=== PATIENT | female | born 1950 | race Caucasian/White ===

== ENCOUNTER 2022-10-08 09:34 | Inpatient (IN) ==
[2022-10-08] MEDS ORDERED: methylPREDNISolone SOD SUCC 125 mg 2 ML VIAL IV ONE (10:25)
[2022-10-08] MEDS ORDERED: Nicotine PATCH 21 MG/24 HR PATCH TRANSDERM ONE (10:29)
[2022-10-08] MEDS ORDERED: Levalbuterol 1.25MG/0.5ML NEB.SOL INH ONE ×2 (10:30→11:48)
[2022-10-08 10:32] LABS: ABS Lymphocytes 0.3 10^3/ul (1.0-4.8); ABS Monocytes 1.4 10^3/ul (0-0.8); ABS Neutrophils 10.7 10^3/ul (1.5-7.7); Hematocrit 60 % (35-47); Hemoglobin 19.5 g/dL (12.0-16.0); Lymphocyte % 2.4 %; Mean Corpuscular HGB Conc 32 g/dL (31-36); Mean Corpuscular Hemoglobin 33 pg (27-31); Mean Corpuscular Volume 103 fL (80-97); Mean Platelet Volume 8.9 fL (7.4-10.4); Platelet Count 112 10^3/uL (150-450); Red Blood Count 5.84 10^6 /uL (3.70-4.87); Red Cell Distribution Width 13 % (10-15); White Blood Count 12.4 10^3/uL (3.5-10.8)
[2022-10-08 10:48] LABS: Activated Partial Thrombo Time 35.8 seconds (26.0-38.0); INR 1.22 (0.89-1.11)
[2022-10-08 10:56] LABS: High Sens Troponin Baseline 63 pg/mL (<15)
[2022-10-08 11:13] LABS: ALT 17 U/L (7-52); AST 25 U/L (13-39); Albumin 3.1 g/dL (3.2-5.2); Albumin/Globulin Ratio 1.2 (1-3); Alcohol, S < 13 mg/dL (<13); Alkaline Phosphatase 70 U/L (35-149); Anion Gap 7 mmol/L (2-11); Blood Urea Nitrogen 9 mg/dL (6-24); C Reactive Protein 246.21 mg/L (<8.01); CO2 Carbon Dioxide 35 mmol/L (22-32); Calcium 8.5 mg/dL (8.6-10.3); Chloride 93 mmol/L (101-111); Globulin 2.6 g/dL (2-4); Glucose 116 mg/dL (70-100); Magnesium 1.6 mg/dL (1.9-2.7); Potassium 3.8 mmol/L (3.5-5.0); Sodium 135 mmol/L (135-145); Total Protein 5.7 g/dL (6.4-8.9); eGFR CKD-EPI 107.2 (>60)
[2022-10-08] MEDS ORDERED: Magnesium Sulfate 2 gm BAG 2 GM/50 ML BAG IVPB ONE (11:17)
[2022-10-08] MEDS ORDERED: Azithromycin 500 mg/250 ml NS 500 MG/250 ML BAG IVPB ONE (11:35)
[2022-10-08] MEDS ORDERED: cefTRIAXone 1 gm/50 mL D5W 1 GM/50 ML BAG IV ONE (11:35)
[2022-10-08 11:59] LABS: High Sensitivity Troponin 1 Hr 55 pg/mL (<15)
[2022-10-08 12:25] LABS: PO2 Arterial 93 mmHg (80-100)
[2022-10-08 12:40] LABS: PCO2 Arterial 81 mmHg (35-45)
[2022-10-08] MEDS ORDERED: Remdesivir 100 mg Vial 200 MG in NS 0.9% 250 ml 210 ML IV ONE (13:30)
[2022-10-08] MEDS: Heparin 5000 UNITS/ML 1 mL VIAL SUBCUT SCH ×2 (14:20→20:57)
[2022-10-08] MEDS ORDERED: LORazepam 2 mg VIAL 1 ml IV PUSH SCH (16:00)
[2022-10-08] MEDS ORDERED: Lorazepam PYXIS KEY PRN ×2 (16:08)
[2022-10-08] MEDS: Multivitamins/Minerals TAB PO SCH (16:29)
[2022-10-08 17:07] LABS: PO2 Arterial 104 mmHg (80-100)
[2022-10-08 17:13] LABS: PCO2 Arterial 76 mmHg (35-45)
[2022-10-08] MEDS: DOXYcycline 100 MG in NS 0.9% 250 ml 250 ML IVPB SCH (17:54)
[2022-10-08] MEDS: Senna TAB 8.6 mg TAB PO SCH (20:35)
[2022-10-09 04:15] LABS: Hematocrit 57 % (35-47); Hemoglobin 18.5 g/dL (12.0-16.0); Mean Corpuscular HGB Conc 33 g/dL (31-36); Mean Corpuscular Hemoglobin 34 pg (27-31); Mean Corpuscular Volume 104 fL (80-97); Red Blood Count 5.45 10^6 /uL (3.70-4.87); Red Cell Distribution Width 14 % (10-15); White Blood Count 18.3 10^3/uL (3.5-10.8)
[2022-10-09] MEDS: DOXYcycline 100 MG in NS 0.9% 250 ml 250 ML IVPB SCH ×2 (04:18→17:10)
[2022-10-09 04:25] LABS: ABS Eosinophils 0.1 10^3/ul (0-0.6); ABS Lymphocytes 0.4 10^3/ul (1.0-4.8); ABS Neutrophils 16.8 10^3/ul (1.5-7.7); Eosinophil % 0.3 %; Nucleated Red Blood Cells % 0.1
[2022-10-09 05:04] LABS: Blood Urea Nitrogen 14 mg/dL (6-24); CO2 Carbon Dioxide 37 mmol/L (22-32); Calcium 8.3 mg/dL (8.6-10.3); Chloride 96 mmol/L (101-111); Glucose 138 mg/dL (70-100); Sodium 136 mmol/L (135-145); eGFR CKD-EPI 111.2 (>60)
[2022-10-09 05:11] LABS: Anion Gap 3 mmol/L (2-11)
[2022-10-09 05:51] LABS: Mean Platelet Volume 9.2 fL (7.4-10.4); Platelet Count 110 10^3/uL (150-450)
[2022-10-09] MEDS: Heparin 5000 UNITS/ML 1 mL VIAL SUBCUT SCH ×3 (05:53→21:18)
[2022-10-09 06:46] LABS: Magnesium 2.2 mg/dL (1.9-2.7); Potassium Redraw 3.9 mmol/L (3.5-5.0)
[2022-10-09] MEDS: Senna TAB 8.6 mg TAB PO SCH ×2 (07:46→21:19)
[2022-10-09] MEDS: Nicotine PATCH 21 MG/24 HR PATCH TRANSDERM SCH (07:46)
[2022-10-09] MEDS: Multivitamins/Minerals TAB PO SCH (07:47)
[2022-10-09] MEDS: Remdesivir 100 mg Vial 100 MG in NS 0.9% 250 ml 230 ML IV SCH (08:23)
[2022-10-09 08:42] LABS: Urine Appearance Cloudy; Urine Bilirubin Negative (Negative); Urine Blood Negative (Negative); Urine Color Amber; Urine Glucose Negative (Negative); Urine Ketones Negative (Negative); Urine Nitrite Negative (Negative); Urine Protein 1+(30 mg/dL) (Negative); Urine Specific Gravity 1.024 (1.002-1.030); Urine Urobilinogen Negative (Negative)
[2022-10-09 08:48] LABS: Urine Bacteria 1+ (Absent); Urine Red Blood Cell Trace(0-2/hpf) (Absent); Urine Squamous Epithelial Cell Present (Absent); Urine White Blood Cell Trace(0-5/hpf) (Absent)
[2022-10-09] MEDS ORDERED: Polyethylene Glycol 3350 17 GM PACKET PO PRN (09:42)
[2022-10-09] MEDS: cefTRIAXone 1 gm/50 mL D5W 1 GM/50 ML BAG IV SCH (12:00)
[2022-10-09] MEDS: guaiFENesin/CODIENE 100mg/10mg 5 ML UDC PO PRN (23:41)
[2022-10-10] MEDS: DOXYcycline 100 MG in NS 0.9% 250 ml 250 ML IVPB SCH ×2 (04:21→16:40)
[2022-10-10] MEDS: Heparin 5000 UNITS/ML 1 mL VIAL SUBCUT SCH ×3 (04:59→22:16)
[2022-10-10 05:50] LABS: Albumin 2.5 g/dL (3.2-5.2); Albumin/Globulin Ratio 1.1 (1-3); C Reactive Protein 113.28 mg/L (<8.01); Calcium 8.6 mg/dL (8.6-10.3); Globulin 2.3 g/dL (2-4); Magnesium 2.1 mg/dL (1.9-2.7); Potassium 3.8 mmol/L (3.5-5.0); Total Bilirubin 0.6 mg/dL (0.2-1.0); Total Protein 4.8 g/dL (6.4-8.9); eGFR CKD-EPI 107.2 (>60)
[2022-10-10 06:45] LABS: Activated Partial Thrombo Time 45.7 seconds (26.0-38.0); INR 1.56 (0.89-1.11)
[2022-10-10] MEDS: Nicotine PATCH 21 MG/24 HR PATCH TRANSDERM SCH (08:08)
[2022-10-10] MEDS: Senna TAB 8.6 mg TAB PO SCH ×3 (08:08→20:20)
[2022-10-10] MEDS: Multivitamins/Minerals TAB PO SCH (08:08)
[2022-10-10] MEDS: Remdesivir 100 mg Vial 100 MG in NS 0.9% 250 ml 230 ML IV SCH (08:28)
[2022-10-10] MEDS ORDERED: Potassium Chlor 20 meq TAB.ER PO ONE (09:04)
[2022-10-10] MEDS: cefTRIAXone 1 gm/50 mL D5W 1 GM/50 ML BAG IV SCH (12:26)
[2022-10-10] MEDS: guaiFENesin/CODIENE 100mg/10mg 5 ML UDC PO PRN ×2 (14:37→22:16)
[2022-10-11] MEDS: DOXYcycline 100 MG in NS 0.9% 250 ml 250 ML IVPB SCH ×2 (05:45→18:35)
[2022-10-11] MEDS: Heparin 5000 UNITS/ML 1 mL VIAL SUBCUT SCH ×3 (05:56→21:01)
[2022-10-11] MEDS: Senna TAB 8.6 mg TAB PO SCH ×2 (08:40→20:56)
[2022-10-11] MEDS: Nicotine PATCH 21 MG/24 HR PATCH TRANSDERM SCH (08:40)
[2022-10-11] MEDS: Remdesivir 100 mg Vial 100 MG in NS 0.9% 250 ml 230 ML IV SCH (08:40)
[2022-10-11] MEDS: Multivitamins/Minerals TAB PO SCH (08:40)
[2022-10-11 09:27] LABS: Hematocrit 55 % (35-47); Hemoglobin 17.8 g/dL (12.0-16.0); Mean Corpuscular HGB Conc 32 g/dL (31-36); Mean Corpuscular Hemoglobin 34 pg (27-31); Mean Corpuscular Volume 105 fL (80-97); Mean Platelet Volume 8.8 fL (7.4-10.4); Platelet Count 172 10^3/uL (150-450); Red Blood Count 5.28 10^6 /uL (3.70-4.87); Red Cell Distribution Width 14 % (10-15); White Blood Count 17.7 10^3/uL (3.5-10.8)
[2022-10-11 10:03] LABS: Calcium 8.9 mg/dL (8.6-10.3); Magnesium 1.9 mg/dL (1.9-2.7); Potassium 4.2 mmol/L (3.5-5.0); eGFR CKD-EPI 106.5 (>60)
[2022-10-11] MEDS ORDERED: Iohexol 350 (CONTRAST) 500 ML MDV IV ONE (11:40)
[2022-10-11] MEDS: cefTRIAXone 1 gm/50 mL D5W 1 GM/50 ML BAG IV SCH (14:00)
[2022-10-11] MEDS ORDERED: Potassium Phosphate IV 10 MMOLE in NS 0.9% 250 ml 250 ML IVPB ONE (15:14)
[2022-10-11] MEDS ORDERED: LORazepam 2 mg VIAL 1 ml IV PUSH SCH (17:44)
[2022-10-12] MEDS: DOXYcycline 100 MG in NS 0.9% 250 ml 250 ML IVPB SCH ×2 (05:18→15:34)
[2022-10-12] MEDS ORDERED: Enoxaparin 40 MG/0.4 ML SYR SUBCUT SCH (06:00)
[2022-10-12 06:11] LABS: Hematocrit 56 % (35-47); Hemoglobin 17.9 g/dL (12.0-16.0); Mean Corpuscular HGB Conc 32 g/dL (31-36); Mean Corpuscular Hemoglobin 33 pg (27-31); Mean Corpuscular Volume 104 fL (80-97); Mean Platelet Volume 8.8 fL (7.4-10.4); Platelet Count 175 10^3/uL (150-450); Red Blood Count 5.39 10^6 /uL (3.70-4.87); Red Cell Distribution Width 14 % (10-15); White Blood Count 13.2 10^3/uL (3.5-10.8)
[2022-10-12] MEDS: Heparin 5000 UNITS/ML 1 mL VIAL SUBCUT SCH (06:29)
[2022-10-12 06:47] LABS: Calcium 8.7 mg/dL (8.6-10.3); Magnesium 1.9 mg/dL (1.9-2.7); Phosphorus 2.7 mg/dL (2.5-5.0); Potassium 4.4 mmol/L (3.5-5.0); eGFR CKD-EPI 103.2 (>60)
[2022-10-12] MEDS: Nicotine PATCH 21 MG/24 HR PATCH TRANSDERM SCH (08:47)
[2022-10-12] MEDS: Remdesivir 100 mg Vial 100 MG in NS 0.9% 250 ml 230 ML IV SCH (08:48)
[2022-10-12] MEDS: Senna TAB 8.6 mg TAB PO SCH ×2 (08:53→20:47)
[2022-10-12] MEDS: Multivitamins/Minerals TAB PO SCH (08:53)
[2022-10-12 12:02] LABS: PCO2 Arterial 64 mmHg (35-45); PO2 Arterial 80 mmHg (80-100)
[2022-10-12] MEDS: cefTRIAXone 1 gm/50 mL D5W 1 GM/50 ML BAG IV SCH (12:09)
[2022-10-12 12:58] LABS: ABS Lymphocytes 0.3 10^3/ul (1.0-4.8); ABS Monocytes 0.7 10^3/ul (0-0.8); ABS Neutrophils 9.3 10^3/ul (1.5-7.7); Hematocrit 58 % (35-47); Hemoglobin 18.6 g/dL (12.0-16.0); Lymphocyte % 3.3 %; Mean Corpuscular HGB Conc 32 g/dL (31-36); Mean Corpuscular Hemoglobin 34 pg (27-31); Mean Corpuscular Volume 105 fL (80-97); Mean Platelet Volume 8.9 fL (7.4-10.4); Nucleated Red Blood Cells % 0.1; Platelet Count 165 10^3/uL (150-450); Red Blood Count 5.52 10^6 /uL (3.70-4.87); Red Cell Distribution Width 14 % (10-15); White Blood Count 10.4 10^3/uL (3.5-10.8)
[2022-10-12 13:27] LABS: CO2 Carbon Dioxide 26 mmol/L (22-32); Calcium 8.8 mg/dL (8.6-10.3); Chloride 101 mmol/L (101-111); Sodium 138 mmol/L (135-145)
[2022-10-12 13:33] LABS: ALT 20 U/L (7-52); Albumin/Globulin Ratio 1.1 (1-3); Alkaline Phosphatase 68 U/L (35-149); Blood Urea Nitrogen 11 mg/dL (6-24); Globulin 2.7 g/dL (2-4); Glucose 146 mg/dL (70-100); Total Protein 5.7 g/dL (6.4-8.9)
[2022-10-12 13:34] LABS: Anion Gap 11 mmol/L (2-11)
[2022-10-12] MEDS: Enoxaparin 40 MG/0.4 ML SYR SUBCUT SCH (15:30)
[2022-10-12] MEDS ORDERED: LORazepam 2 mg VIAL 1 ml IV PUSH PRN (16:44)
[2022-10-12] MEDS ORDERED: LORazepam 2 mg VIAL 1 ml IV PUSH SCH (16:44)
[2022-10-12] MEDS ORDERED: Magnesium Sulfate 2 gm BAG 2 GM/50 ML BAG IVPB ONE (18:43)
[2022-10-12 19:36] LABS: Calcium 8.3 mg/dL (8.6-10.3); eGFR CKD-EPI 104.4 (>60)
[2022-10-12] MEDS ORDERED: Lactated Ringers 1000 ml BAG 1,000 ML IV SCH (20:00)
[2022-10-12 20:12] LABS: Magnesium 1.9 mg/dL (1.9-2.7); Potassium 4.4 mmol/L (3.5-5.0)
[2022-10-12 20:21] LABS: High Sensitivity Troponin 1 Hr 37 pg/mL (<15)
[2022-10-13] MEDS: DOXYcycline 100 MG in NS 0.9% 250 ml 250 ML IVPB SCH ×2 (05:34→18:11)
[2022-10-13 06:21] LABS: Hematocrit 53 % (35-47); Hemoglobin 16.8 g/dL (12.0-16.0); Mean Corpuscular HGB Conc 32 g/dL (31-36); Mean Corpuscular Hemoglobin 33 pg (27-31); Mean Corpuscular Volume 104 fL (80-97); Platelet Count 152 10^3/uL (150-450); Red Blood Count 5.03 10^6 /uL (3.70-4.87); Red Cell Distribution Width 14 % (10-15)
[2022-10-13 06:51] LABS: Calcium 8.3 mg/dL (8.6-10.3); Magnesium 2.3 mg/dL (1.9-2.7); Phosphorus 2.4 mg/dL (2.5-5.0); eGFR CKD-EPI 109.5 (>60)
[2022-10-13] MEDS ORDERED: Potassium Phosphate IV 10 MMOLE in NS 0.9% 250 ml 250 ML IVPB ONE (07:20)
[2022-10-13] MEDS: Multivitamins/Minerals TAB PO SCH (08:02)
[2022-10-13] MEDS: Senna TAB 8.6 mg TAB PO SCH ×2 (08:02→20:34)
[2022-10-13] MEDS: Nicotine PATCH 21 MG/24 HR PATCH TRANSDERM SCH (08:02)
[2022-10-13] MEDS: cefTRIAXone 1 gm/50 mL D5W 1 GM/50 ML BAG IV SCH (13:12)
[2022-10-13] MEDS: Enoxaparin 40 MG/0.4 ML SYR SUBCUT SCH (16:02)
[2022-10-13] MEDS: guaiFENesin/CODIENE 100mg/10mg 5 ML UDC PO PRN (20:37)
[2022-10-14] MEDS: DOXYcycline 100 MG in NS 0.9% 250 ml 250 ML IVPB SCH ×2 (05:24→17:32)
[2022-10-14 07:06] LABS: ABS Lymphocytes 0.4 10^3/ul (1.0-4.8); ABS Monocytes 0.6 10^3/ul (0-0.8); ABS Neutrophils 4.6 10^3/ul (1.5-7.7); Eosinophil % 0.1 %; Hematocrit 52 % (35-47); Hemoglobin 16.6 g/dL (12.0-16.0); Lymphocyte % 6.8 %; Mean Corpuscular HGB Conc 32 g/dL (31-36); Mean Corpuscular Hemoglobin 34 pg (27-31); Mean Corpuscular Volume 105 fL (80-97); Mean Platelet Volume 8.8 fL (7.4-10.4); Nucleated Red Blood Cells % 0.1; Platelet Count 127 10^3/uL (150-450); Red Blood Count 4.95 10^6 /uL (3.70-4.87); Red Cell Distribution Width 14 % (10-15); White Blood Count 5.6 10^3/uL (3.5-10.8)
[2022-10-14 08:24] LABS: Anion Gap 5 mmol/L (2-11); Blood Urea Nitrogen 9 mg/dL (6-24); CO2 Carbon Dioxide 37 mmol/L (22-32); Chloride 99 mmol/L (101-111); Glucose 121 mg/dL (70-100); Magnesium 1.9 mg/dL (1.9-2.7); Phosphorus 2.8 mg/dL (2.5-5.0); Potassium 4.1 mmol/L (3.5-5.0); Sodium 141 mmol/L (135-145)
[2022-10-14] MEDS: Nicotine PATCH 21 MG/24 HR PATCH TRANSDERM SCH (08:43)
[2022-10-14] MEDS: Senna TAB 8.6 mg TAB PO SCH ×2 (08:43→20:05)
[2022-10-14] MEDS: Multivitamins/Minerals TAB PO SCH (08:43)
[2022-10-14 08:50] LABS: eGFR CKD-EPI 111.2 (>60)
[2022-10-14] MEDS ORDERED: Magnesium Sulfate 2 gm BAG 2 GM/50 ML BAG IVPB ONE (09:33)
[2022-10-14] MEDS: Enoxaparin 40 MG/0.4 ML SYR SUBCUT SCH (13:58)
[2022-10-14] MEDS: cefTRIAXone 1 gm/50 mL D5W 1 GM/50 ML BAG IV SCH (13:58)
[2022-10-14] MEDS ORDERED: Hyaluronidase HUMAN 15 UNIT in Sodium Chloride 0.9% 0.9 ML INTRADERM ONE (19:00)
[2022-10-15] MEDS: DOXYcycline 100 MG in NS 0.9% 250 ml 250 ML IVPB SCH (05:26)
[2022-10-15 07:05] LABS: Hematocrit 53 % (35-47); Hemoglobin 17.2 g/dL (12.0-16.0); Mean Corpuscular HGB Conc 32 g/dL (31-36); Mean Corpuscular Hemoglobin 34 pg (27-31); Mean Corpuscular Volume 104 fL (80-97); Mean Platelet Volume 9.3 fL (7.4-10.4); Platelet Count 102 10^3/uL (150-450); Red Cell Distribution Width 14 % (10-15); White Blood Count 5.4 10^3/uL (3.5-10.8)
[2022-10-15 07:21] LABS: Anion Gap 4 mmol/L (2-11); Blood Urea Nitrogen 9 mg/dL (6-24); CO2 Carbon Dioxide 39 mmol/L (22-32); Chloride 97 mmol/L (101-111); Glucose 94 mg/dL (70-100); Magnesium 2.2 mg/dL (1.9-2.7); Phosphorus 2.8 mg/dL (2.5-5.0); Potassium 3.5 mmol/L (3.5-5.0); Sodium 140 mmol/L (135-145)
[2022-10-15 07:38] LABS: eGFR CKD-EPI 111.2 (>60)
[2022-10-15] MEDS: Nicotine PATCH 21 MG/24 HR PATCH TRANSDERM SCH (09:32)
[2022-10-15] MEDS: Multivitamins/Minerals TAB PO SCH (09:32)
[2022-10-15] MEDS: Senna TAB 8.6 mg TAB PO SCH ×2 (09:32→22:01)
[2022-10-15] MEDS: Enoxaparin 40 MG/0.4 ML SYR SUBCUT SCH (15:20)
[2022-10-16 07:58] LABS: Calcium 8.4 mg/dL (8.6-10.3); Potassium 3.6 mmol/L (3.5-5.0); eGFR CKD-EPI 109.5 (>60)
[2022-10-16 07:59] LABS: Hematocrit 56 % (35-47); Mean Corpuscular HGB Conc 32 g/dL (31-36); Mean Corpuscular Hemoglobin 33 pg (27-31); Mean Corpuscular Volume 104 fL (80-97); Red Blood Count 5.38 10^6 /uL (3.70-4.87); Red Cell Distribution Width 14 % (10-15); White Blood Count 5.8 10^3/uL (3.5-10.8)
[2022-10-16 08:28] LABS: ABS Lymphocytes 1.4 10^3/ul (1.0-4.8); ABS Monocytes 0.8 10^3/ul (0-0.8); ABS Neutrophils 3.7 10^3/ul (1.5-7.7); Eosinophil % 0.1 %; Mean Platelet Volume 10.1 fL (7.4-10.4); Nucleated Red Blood Cells % 0.4; Platelet Count 89 10^3/uL (150-450)
[2022-10-16] MEDS: Senna TAB 8.6 mg TAB PO SCH (08:40)
[2022-10-16] MEDS: Multivitamins/Minerals TAB PO SCH (08:40)
[2022-10-16] MEDS: Nicotine PATCH 21 MG/24 HR PATCH TRANSDERM SCH (08:41)
[2022-10-16] MEDS ORDERED: FLUTICASONE FUROATE INH SCH (09:00)
[2022-10-16] MEDS ORDERED: UMECLIDINIUM INH SCH (09:00)
[2022-10-16] MEDS ORDERED: VILANTEROL INH SCH (09:00)
[2022-10-16] MEDS ORDERED: [UNRECOGNIZED DRUG - OTHER] INH SCH (09:00)
[2022-10-16] MEDS ORDERED: Potassium Chlor 20 meq TAB.ER PO ONE (09:30)
[2022-10-16 11:12] VITALS: BP 165/82
== END 2022-10-16 14:50 | disposition home or self-care (01) | DRG 177 ==
LOC: ED 09:34 → EDHOLD 12:39 → SUATTDRO 12:39 → EDHOLD 13:34 → ICU 14:00 → MED 10-10 12:28
PROVIDERS: ADMIT Internal Medicine; ATTEND Hospitalist